=== PATIENT | female | born 1955 | race Caucasian/White ===

== ENCOUNTER 2017-03-04 14:37 | Emergency (ER) | payer BC ==
--- NOTE | ~2017-03-04 | EKG ---
PATIENT: LUCY MEDRANO UNIT #: [id number] Ventricular Rate: 75 BPM Atrial Rate: 75 BPM P-R Interval: 158 ms QRS Duration: 84 ms Q-T Interval: 386 ms QTC Calculation(Bezet): 431 ms P [place]: 45 degrees Calculated R [place]: 17 degrees Calculated T [place]: 41 degrees Diagnosis Line: Normal sinus rhythm Diagnosis Line: Normal ECG Diagnosis Line: No previous ECGs available Diagnosis Line: Confirmed by DOMINGO BERMUDEZ MD ([id number]) on Diagnosis Line: 03/05/2017 10:41:04 AM INTERPRETING MD: LARA BRAXTON
[~2017-03-04 14:37] MED LIST: ADVIL200 M1 PO; ADVIL200 M2 PO; ADVIL200 M3 PO; ALEVE PO; ANTIBIOTIC; BACTRIM DS TABL1 TA1 PO; BACTRIM DS TABL1 TAB PO; CALCIUM + D 6001 TA1 PO; CIPRO PO; CYCLOBENZAPRINE5 MG; FLEXERIL10 M1 PO; FLEXERIL10 MG PO; FLOMAX0.4 M1 PO; HYDROCODON-ACE1 EAC7 PO; IBUPROFEN200 M1 PO; ICY HOT TP; MEDROL DOSEPAK4 MG PO; MULTIPLE VITAMI1 T11 PO; NEURONTIN100 MG PO; NEURONTIN300 MG PO; NO MEDICATIONS; TYLOX1 CAP 5/50 PO; VITAMIN B-12250 MCG PO; VITAMIN D50000 UNIT PO
[2017-03-04 15:36] LABS: BASOPHIL% 0.7 % (0-2.5); EOSINOPHIL# 0.3 X10e3 (0-0.7); EOSINOPHIL% 4.8 % (0.0-7.0); HEMATOCRIT 39.4 % (35.0-45.0); HEMOGLOBIN 13.4 gm/dL (12.0-16.0); LYMPHOCYTE# 1.8 X10e3 (1.0-3.5); LYMPHOCYTE% 25.8 % (17.0-45.0); MEAN CELL VOLUME 92.4 FL (83-96); MEAN CORPUSCULAR HEMOGLOBIN 31.4 PG (28-34); MEAN PLATELET VOLUME 7.6 FL (6.5-11.5); MONOCYTE# 0.4 X10e3 (0-1.0); MONOCYTE% 5.1 % (3.0-12.0); NEUTROPHIL# 4.4 X10e3 (1.5-7.1); NEUTROPHIL% 63.6 % (40-75); PLATELET COUNT 282 X10e3 (140-420); RED BLOOD COUNT 4.27 X10e (3.90-5.30); RED CELL DISTRIBUTION WIDTH 13.2 % (11.0-15.5)
[2017-03-04 15:38] LABS: DIFF IND NO
[2017-03-04 16:02] LABS: ALBUMIN SERUM 4.3 g/dL (3.5-5.0); BILIRUBIN, DIRECT 0.1 mg/dL (0.0-0.2); BILIRUBIN,INDIRECT 0.3 mg/dL (0.0-0.9); BILIRUBIN,TOTAL 0.4 mg/dL (0.2-2.0); CALCIUM SERUM 9.2 mg/dL (8.4-10.2); CREATININE SERUM 0.7 mg/dL (0.6-1.4); GLOM FILT RATE Estimated 94.8 mL/min (>60); POTASSIUM 3.9 mmol/L (3.5-5.1); PROTEIN TOTAL SERUM 7.2 g/dL (6.0-8.3)
[2017-03-04 19:26] LABS: URINE SOURCE CLEAN CATCH
[2017-03-04 19:32] LABS: URINE APPEARANCE CLEAR; URINE BILIRUBIN NEG (NEG); URINE BLOOD NEG (NEG); URINE COLOR YELLOW; URINE GLUCOSE NEG (NEG); URINE KETONE NEG (NEG); URINE LEUKOCYTE ESTERASE TRACE (NEG); URINE NITRATE NEG (NEG); URINE PROTEIN NEG (NEG); URINE SPECIFIC GRAVITY 1.011 (1.003-1.035); URINE UROBILINOGEN 0.2 MG/DL (NEG)
[2017-03-04 19:35] LABS: CULTURE INDICATED? YES; URBCS1 AUWI 0-2 /[HPF] (0-2); URINE BACTERIA AUWI 2+ (NEGATIVE); URINE SQUAMOUS EPITHELIAL CELL NONE SEEN /[HPF]
== END 2017-03-04 19:55 | disposition home or self-care (01) ==
LOC: CED 14:37
DX: K29.00 Acute gastritis without bleeding (principal); K21.0 Gastro-esophageal reflux disease with esophagitis; Z87.442 Personal history of urinary calculi; Z88.5 Allergy status to narcotic agent
CPT/HCPCS: 36415; 80048; 80076; 81003; 83690; 85025; 87086; 87088; 87186; 93005; 99284

== ENCOUNTER → 2017-04-24 | Outpatient (CLI) | payer BC ==
--- NOTE | ~2017-04-24 | MY29 ---
[facility] A Service of [facility] RADIOLOGY TEXT RESULTS PATIENT: LUCY MEDRANO LOCATION: [facility] : 59 UNIT #: [id number] AGE: [address]: Leonel Ortez MD SEX: F ORDER DR: [id number] [facility] [address]. [place], [place] [address] [id number] O MR#: [id number] Acc #: [id number] NAME: LUCY MEDRANO : 1955 SEX: F STUDY DATE/TIME: 04/24/2017 10:48 UNIT: [facility] ROOM: STUDY DESCRIPTION: MY HENRIK SCREENING W/ CAD BILAT Attending Physician: Leonel Ortez M.D. Ordering Physician: Leonel Ortez M.D. Primary Care Physician: Leonel Ortez M.D. MEDICAL IMAGING REPORT This report is preliminary unless electronic signature is present EXAM Bilateral digital screening mammogram with CAD DATE 04/24/2017 HISTORY No personal or family history of breast cancer. History of left breast cyst excision approximately 10 years ago. No current complaints. COMPARISON Bilateral screening mammogram with CAD 07/06/2012, 07/04/2010. FINDINGS CC and MLO views were obtained of each breast utilizing digital technique and reviewed with an FDA-approved CAD device. Heterogeneously dense fibroglandular tissue is present bilaterally, which can limit sensitivity of mammography. Round markers were placed over each breast denoting skin lesions. Linear marker was placed over the periareolar left breast denoting a surgical scar. No new or suspicious nodule, architectural distortion or clustered microcalcifications are seen. Scattered benign-appearing calcifications are present bilaterally. IMPRESSION 1. BIRADS 2. Benign findings. Routine bilateral screening mammogram is recommended in 1 year. Patients over the age of 40 are entered into a reminder system with target due date for the next mammogram. A result letter will also be sent to the [facility] A Service of [facility] RADIOLOGY TEXT RESULTS PATIENT: LUCY MEDRANO LOCATION: [facility] : 59 UNIT #: [id number] AGE: [address]: Leonel Ortez MD SEX: F ORDER DR: patient. BIRADS: 2 Benign Finding Dictated by... Mary Ann Guy M.D. THIS IS AN ELECTRONICALLY VERIFIED REPORT Mary Ann Guy M.D. at 04/30/2017 8:36 AM [facility]/randal TD: 04/24/2017 16:40 JOB #: [id number] MEDICAL IMAGING REPORT Page 1 of 1 COPY
== END | disposition home or self-care (01) ==
LOC: CWCC 04-17 12:15
DX: Z12.31 Encounter for screening mammogram for malignant neoplasm of breast (principal); Z98.890 Other specified postprocedural states
CPT/HCPCS: G0202